=== PATIENT | female | born 1980 | race Caucasian/White ===

== ENCOUNTER 2016-03-13 | Emergency (ER) | payer OTHER | END 2016-03-13 20:34 | disposition home or self-care (01) ==

== ENCOUNTER 2017-04-09 23:15 | Emergency (ER) | payer OTHER ==
[2017-04-09 23:22] VITALS: BP 150/77
--- NOTE | 2017-04-09 23:36 | ED Physician Documentation ---
PD HPI OPHTHO - Stated complaint Stated Complaint: R EYE SWELLING - Chief complaint Chief Complaint: Heent - History obtained from History obtained from: Patient - History of Present Illness Timing - onset: How many weeks ago (1) Timing - details: Gradual onset, Still present Location: Right Quality / character: Aching Associated symptoms: Redness, Swelling Contributing factors: Wears glasses Similar symptoms before: No diagnosis Recently seen: Not recently seen - Additional information Additional information: patient is a 30 year old female with a history of type 1 diabetes who is presenting to the emergency department for tenderness and swelling of her upper eyelid. patient states that it has been going on for about the last 1.5 weeks. 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 Review of Systems Constitutional: denies: Fever, Chills Eyes: denies: Decreased vision Ears: reports: Reviewed and negative Nose: reports: Reviewed and negative Throat: reports: Reviewed and negative Cardiac: reports: Reviewed and negative GI: reports: Reviewed and negative : reports: Reviewed and negative Skin: reports: Reviewed and negative Musculoskeletal: reports: Reviewed and negative Neurologic: denies: Headache, Head injury, LOC Immunocompromised: denies: Immunocompromised PD PAST MEDICAL HISTORY - Past Medical History Endocrine/Autoimmune: Type 1 diabetes, HyPOthyroidism - Past Surgical History Past Surgical History: No - Present Medications Home Medications: Ambulatory Orders Medication Instructions Recorded Confirmed Insulin Aspart [Novolog] 60 units IV DAILY 02/12/14 02/12/14 Levothyroxine Sodium 75 mcg PO DAILY 02/12/14 02/12/14 - Allergies Allergies/Adverse Reactions: Allergies Allergy/AdvReac Type Severity Reaction Status Date / Time No Known Drug Allergies Allergy Verified 04/09/17 23:22 - Social History Does the pt smoke?: No Smoking Status: Never smoker Does the pt drink ETOH?: No Does the pt have substance abuse?: No - Immunizations Immunizations are current?: Yes PD ED PE NORMAL - Vitals Vital signs reviewed: Yes - General General: Alert and oriented X 3, No acute distress - HEENT HEENT: Atraumatic, PERRL, Moist mucous membranes - Cardiac Cardiac: RRR - Respiratory Respiratory: No respiratory distress - Abdomen Abdomen: Non distended - Extremities Extremities: No deformity, No edema - Neuro Neuro: Alert and oriented X 3, No motor deficit, Normal speech PD ED PE EXPANDED - Eyes Eyes: Eyelid erythema (stye on right superior eyelid) Results - Vitals Vitals: Vital Signs - 24 hr 04/09/17 23:20 Temperature 36.5 C Heart Rate 83 Respiratory 15 Rate Blood Pressure 150/77 H O2 Saturation 98 Oxygen O2 Source Room air PD MEDICAL DECISION MAKING - ED course Complexity details: reviewed old records, reviewed results, considered differential, d/w patient ED course: Patient was seen and examined at bedside. patient was well appearing and no distress. Patient's symptoms were caused by a stye. patient was instructed to apply warm compresses and follow up with her eye doctor. patient required no further work up and was stable for discharge with outpatient follow up. Departure - Departure Disposition: Home, Self Care Clinical Impression: Sty, external Condition: Good Instructions: ED [place] Follow-Up: Chloe Mon DO [Primary Care Provider] - Tomorrow Comments: You should apply hot compresses to your eyelid at least 4 times a day. Since your symptoms have been going on for over a week you should schedule a follow up appointment with your eye doctor to discuss possible incision and currettage. you can take tylenol as needed for pain. you may return to the emergency department at any time for new, worsening or uncontrollable symptoms. Discharge Date/Time: 04/09/17 23:40
== END 2017-04-09 23:40 | disposition home or self-care (01) ==
LOC: ED 23:15
DX: H00.021 Hordeolum internum right upper eyelid (principal); E10.9 Type 1 diabetes mellitus without complications; E03.9 Hypothyroidism, unspecified
CPT/HCPCS: 99282

== ENCOUNTER 2018-12-29 14:28 | Emergency (ER) | payer OTHER ==
[2018-12-29 14:35] VITALS: BP 144/82
[2018-12-29 14:54] LABS: BILIRUBIN,URINE NEGATIVE (NEGATIVE); GLUCOSE, URINE (UA) NEGATIVE (NEGATIVE); KETONES,URINE (UA) TRACE mg/dL (NEGATIVE); LEUKOCYTE ESTERASE, URINE LARGE (NEGATIVE); NITRITE,URINE NEGATIVE (NEGATIVE); OCCULT BLOOD,URINE LARGE (NEGATIVE); PH,URINE 6.5 PH (5.0-7.5); PROTEIN,URINE 100 mg/dL (NEGATIVE); UROBILINOGEN,URINE 0.2 (NORMAL) E.U./dL (NORMAL)
[2018-12-29 14:55] LABS: CLARITY,URINE CLOUDY (CLEAR)
[2018-12-29 14:57] LABS: HCG UR QUAL NEGATIVE
[2018-12-29] MEDS ORDERED: NITROFURANTOIN MACRO 100 MG CAPSULE PO STA (14:57)
[2018-12-29] MEDS ORDERED: PHENAZOPYRIDINE 100 MG TABLET PO STA (14:57)
--- NOTE | 2018-12-29 14:58 | ED Physician Documentation ---
PD HPI FEMALE - Stated complaint Stated Complaint: FEMALE - Chief complaint Chief Complaint: UTI - History obtained from History obtained from: Patient - History of Present Illness Timing - onset: Today Timing - duration: Days (1) Timing - details: Gradual onset Pain level max: 4 Pain level max: 3 Associated symptoms: Urinary frequency, Hematuria. No: Fever Contributing factors: No: Similar symptoms before: Diagnosis (UTI) Recently seen: Not recently seen Review of Systems Constitutional: denies: Fever GI: denies: Vomiting : reports: Dysuria, Frequency, Hesitancy, Hematuria. denies: Now EGA Skin: denies: Rash Musculoskeletal: denies: Neck pain, Back pain Neurologic: denies: Headache PD PAST MEDICAL HISTORY - Past Medical History Endocrine/Autoimmune: Type 1 diabetes, HyPOthyroidism - Past Surgical History Past Surgical History: No - Present Medications Home Medications: Ambulatory Orders Medication Instructions Recorded Confirmed Insulin Aspart [Novolog] 60 units IV DAILY 02/12/14 02/12/14 Levothyroxine Sodium 75 mcg PO DAILY 02/12/14 02/12/14 Nitrofurantoin Monohyd/M-Cryst 100 mg PO BID #10 capsule 12/29/18 [Macrobid 100 mg Capsule] - Allergies Allergies/Adverse Reactions: Allergies Allergy/AdvReac Type Severity Reaction Status Date / Time No Known Drug Allergies Allergy Verified 12/29/18 14:33 - Social History Does the pt smoke?: No Smoking Status: Never smoker Does the pt drink ETOH?: No Does the pt have substance abuse?: No - Immunizations Immunizations are current?: Yes PD ED PE NORMAL - Vitals Vital signs reviewed: Yes - General General: Alert and oriented X 3, No acute distress - HEENT HEENT: Moist mucous membranes - Neck Neck: Supple, no meningeal sign - Respiratory Respiratory: No respiratory distress - Back Back: No CVA TTP - Derm Derm: Warm and dry - Neuro Neuro: Alert and oriented X 3 Results - Vitals Vitals: Vital Signs - 24 hr 12/29/18 14:33 Temperature 36.7 C Heart Rate 85 Respiratory 16 Rate Blood Pressure 144/82 H O2 Saturation 99 Oxygen O2 Source Room air - Labs Labs: Laboratory Tests 12/29/18 14:38 Urine Color YELLOW Urine Clarity CLOUDY Urine pH 6.5 Ur Specific Vina 1.015 Urine Protein 100 H Urine Glucose (UA) NEGATIVE Urine Ketones TRACE Urine Occult Blood LARGE H Urine Nitrite NEGATIVE Urine Bilirubin NEGATIVE Urine Urobilinogen 0.2 (NORMAL) Ur Leukocyte Esterase LARGE H Ur Microscopic Review INDICATED Urine Culture Comments Not Reportable Urine HCG, Qual NEGATIVE PD MEDICAL DECISION MAKING - ED course Complexity details: reviewed results, considered differential, d/w patient ED course: 38-year-old female presents to the emergency department with a UTI. Will place on Macrobid and Pyridium. She is well-appearing, nontoxic. Afebrile. No evidence of pyelonephritis. Patient counseled regarding signs and symptoms for which I believe and urgent re-evaluation would be necessary. Patient with good understanding of and agreement to plan and is comfortable going home at this time This document was made in part using voice recognition software. While efforts are made to proofread this document, sound alike and grammatical errors may occur. Departure - Departure Disposition: 01 Home, Self Care Clinical Impression: UTI (urinary tract infection) Qualifiers: Urinary tract infection type: acute cystitis Hematuria presence: without hematuria Qualified Code(s): N30.00 - Acute cystitis without hematuria Condition: Good Instructions: ED UTI Cystitis Female Follow-Up: Elenita Hernandez MD [Primary Care Provider] - As Needed Prescriptions: Nitrofurantoin Monohyd/M-Cryst [Macrobid 100 mg Capsule] 100 mg PO BID #10 capsule Comments: Take all antibiotics until gone. Return if you worsen. Follow-up with your doctor as needed for further care.
[2018-12-29 15:05] LABS: BACTERIA,URINE Few /HPF (None Seen); SQUAMOUS EPITHELIAL CELL,UR FEW Squamous (<= Few)
== END 2018-12-29 15:04 | disposition home or self-care (01) ==
LOC: ED 14:28
DX: N30.01 Acute cystitis with hematuria (principal); E10.9 Type 1 diabetes mellitus without complications
CPT/HCPCS: 81001; 81025; 87086; 99283; 99284; A9270; 81003

== ENCOUNTER 2020-10-09 07:00 | Outpatient (CLI) | payer BC, OTHER | END 2020-10-09 23:59 | disposition home or self-care (01) | LOC: LAB.R 07:00 | PROVIDERS: ATTEND Physician Assistant Medical | DX: N39.0 Urinary tract infection, site not specified (principal) | CPT/HCPCS: 87086 ==

== ENCOUNTER 2020-11-29 07:57 | Outpatient (CLI) | payer BC, OTHER ==
[2020-12-08 14:01] LABS: PROTEIN C ACTIVITY 90 % normal (70-180)
== END 2020-11-29 07:58 | disposition home or self-care (01) ==
LOC: LAB.S 07:57
PROVIDERS: ATTEND Family Medicine
DX: Z01.812 Encounter for preprocedural laboratory examination (principal); Z82.3 Family history of stroke
CPT/HCPCS: 36415; 81241; 81599; 85303; 85306; 86769

== ENCOUNTER 2020-12-13 08:00 | Outpatient (CLI) | payer BC, OTHER ==
[2020-12-13 14:58] LABS: BASOPHILS % (AUTO) 0.8 %; EOSINOPHILS % (AUTO) 0.3 %; HCT - HEMATOCRIT 43.8 % (37.0-47.0); HGB - HEMOGLOBIN 13.5 g/dL (12.0-16.0); LYMPHOCYTES # (AUTO) 0.9 10^3/uL (1.5-3.5); LYMPHOCYTES % (AUTO) 24.5 %; MEAN CORPUSCULAR HEMOGLOBIN 27.3 pg (27.0-31.0); MEAN CORPUSCULAR HGB CONC 30.8 g/dL (32.0-36.0); MEAN CORPUSCULAR VOLUME 88.7 fL (81.0-99.0); MEAN PLATELET VOLUME 10.7 fL (7.9-10.8); MONOCYTES # (AUTO) 0.5 10^3/uL (0.0-1.0); MONOCYTES % (AUTO) 14.1 %; NEUTROPHILS # (AUTO) 2.3 10^3/uL (1.5-6.6); PLT - PLATELET COUNT 180 10^3/uL (130-450); RED BLOOD COUNT 4.94 10^6/uL (4.20-5.40); RED CELL DISTRIBUTION WIDTH 13.7 % (12.0-15.0); WHITE BLOOD COUNT 3.8 x10^3/uL (4.8-10.8)
[2020-12-13 15:50] LABS: CALCIUM 8.9 mg/dL (8.5-10.3); CREATININE 0.7 mg/dL (0.4-1.0); POTASSIUM 4.3 mmol/L (3.5-5.0)
== END 2020-12-13 23:59 | disposition home or self-care (01) ==
LOC: LAB.S 08:00
PROVIDERS: ATTEND Emergency Medicine
DX: U07.1 COVID-19 (principal); E10.9 Type 1 diabetes mellitus without complications; M79.10 Myalgia, unspecified site
CPT/HCPCS: 36415; 80048; 85025; 85379; 86140

== ENCOUNTER 2020-12-14 17:59 | Emergency (ER) | payer BC, OTHER ==
--- NOTE | 2020-12-14 18:10 | ED Physician Documentation ---
History of Present Illness - Stated complaint Stated Complaint: C+ ANTIBODY INFUSION - History obtained from History obtained from: Patient - Additonal information Additional information: 40-year-old woman seen earlier in the day by me for her symptoms after Covid vaccine. She had a Covid test already pending from the urgent care and after discharge. This came back positive. She denies shortness of breath. She does fit criteria for Mab therapy and was referred back for that. This is because of BMI and underlying diabetes. She denies shortness of breath. Review of Systems Constitutional: reports: Chills, Myalgias Nose: reports: Rhinorrhea / runny nose Respiratory: denies: Dyspnea PD PAST MEDICAL HISTORY - Past Medical History Endocrine/Autoimmune: Type 1 diabetes, HyPOthyroidism - Past Surgical History Past Surgical History: No - Present Medications Home Medications: Ambulatory Orders Medication Instructions Recorded Confirmed Insulin Aspart [Novolog] 60 units IV DAILY 02/12/14 02/12/14 Levothyroxine Sodium 75 mcg PO DAILY 02/12/14 02/12/14 Nitrofurantoin Monohyd/M-Cryst 100 mg PO BID #10 capsule 12/29/18 [Macrobid 100 mg Capsule] - Allergies Allergies/Adverse Reactions: Allergies Allergy/AdvReac Type Severity Reaction Status Date / Time codeine Allergy Nausea Verified 12/14/20 18:26 - Social History Does the pt smoke?: No Smoking Status: Never smoker Does the pt drink ETOH?: No Does the pt have substance abuse?: No - Immunizations Immunizations are current?: Yes PD ED PE NORMAL - Vitals Vital signs reviewed: Yes - General General: Alert and oriented X 3, No acute distress, Well developed/nourished - Neck Neck: Supple, no meningeal sign, No bony TTP - Back Back: No CVA TTP, No spinal TTP - Derm Derm: Normal color, Warm and dry - Neuro Neuro: Alert and oriented X 3, Normal speech Results - Vitals Vitals: Vital Signs - 24 hr 12/14/20 18:26 Temperature 37.3 C Heart Rate 76 Respiratory 16 Rate Blood Pressure 146/64 H O2 Saturation 100 Oxygen O2 Source Room air PD MEDICAL DECISION MAKING - ED course ED course: Mab therapy for this patient with Covid was considered and discussed with the patient. The patient was provided the handout: ``Casirivimab plus Imdevimab Fact Sheet for Patients, Parents and Caregivers, and the information within was discussed with the patient. The patient was informed of alternatives prior to receiving Mab therapy. The patient was informed that these medications are unapproved drugs that are authorized for use under Emergency Use Authorization by the FDA. The patient will be monitored for at least 1 hour after infusion is complete. Departure - Departure Clinical Impression: COVID-19 Condition: Good Record reviewed to determine appropriate education?: Yes Instructions: ED Viral Syndrome Comments: Now that we know you have Covid, you do need to quarantine. I presume our employee health department will reach out to you regarding this. Return for new or worsening symptoms.
[2020-12-14] MEDS ORDERED: CASIRIVIMAB/IMDEVIMAB 10 ML in SODIUM CHLORIDE 0.9% 50 ML IV ONE (19:00)
[2020-12-14 20:16] VITALS: BP 138/78
== END 2020-12-14 20:21 | disposition home or self-care (01) ==
LOC: ED 17:59
DX: U07.1 COVID-19 (principal); E10.9 Type 1 diabetes mellitus without complications; Z68.42 Body mass index [BMI] 45.0-49.9, adult; R07.89 Other chest pain; R79.89 Other specified abnormal findings of blood chemistry
CPT/HCPCS: 71275; 93005; 99283; 99284; M0243; Q0244; Q9967

== ENCOUNTER 2022-09-22 08:00 | Outpatient (CLI) | payer BC, OTHER ==
--- NOTE | 2022-09-22 13:01 | XRAY Report ---
PROCEDURE: Ankle 3 View RT INDICATIONS: SPRAIN OF RIGHT ANKLE TECHNIQUE: 3 views of the ankle were acquired. COMPARISON: None. FINDINGS: Bones: Multiple corticated ossifications inferior to the lateral malleolus is consistent with remote trauma. 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 No acute fractures or dislocations. Ankle mortise is normally aligned. No suspicious bony lesions. Soft tissues: No tibiotalar joint effusion. Achilles tendon appears normal. Lateral soft tissue swe lling. Small vessel calcifications typically indicate long-standing diabetes. IMPRESSION: No acute bony abnormality. Posttraumatic degenerative arthritis. Lateral ankle sprain. Reviewed by: Zach Avlia MD on 09/22/2022 1:00 PM PDT Approved by: Zach Avila MD on 09/22/2022 1:00 PM PDT Station ID: [id number]
== END 2022-09-22 23:59 | disposition home or self-care (01) ==
LOC: DI.S 08:00
PROVIDERS: ATTEND Physician Assistant Medical
DX: S93.401A Sprain of unspecified ligament of right ankle, initial encounter (principal); M19.171 Post-traumatic osteoarthritis, right ankle and foot

== ENCOUNTER 2023-05-13 08:00 | Outpatient (CLI) | payer BC, OTHER | END 2023-05-13 23:59 | disposition home or self-care (01) | LOC: LAB.S 08:00 | PROVIDERS: ATTEND Nurse Practitioner | DX: N39.0 Urinary tract infection, site not specified (principal) | CPT/HCPCS: 87086 ==

== ENCOUNTER 2023-08-19 08:51 | Outpatient (CLI) | payer BC, OTHER ==
[2023-08-19 15:08] LABS: BASOPHILS # (AUTO) 0.1 10^3/uL (0.0-0.1); BASOPHILS % (AUTO) 0.9 %; EOSINOPHILS # (AUTO) 0.1 10^3/uL (0.0-0.7); EOSINOPHILS % (AUTO) 0.6 %; HCT - HEMATOCRIT 41.8 % (37.0-47.0); HGB - HEMOGLOBIN 13.3 g/dL (12.0-16.0); LYMPHOCYTES # (AUTO) 1.6 10^3/uL (1.5-3.5); LYMPHOCYTES % (AUTO) 19.9 %; MEAN CORPUSCULAR HEMOGLOBIN 28.3 pg (27.0-31.0); MEAN CORPUSCULAR HGB CONC 31.8 g/dL (32.0-36.0); MEAN CORPUSCULAR VOLUME 88.9 fL (81.0-99.0); MEAN PLATELET VOLUME 10.8 fL (7.9-10.8); MONOCYTES # (AUTO) 0.5 10^3/uL (0.0-1.0); MONOCYTES % (AUTO) 6.3 %; NEUTROPHILS # (AUTO) 5.7 10^3/uL (1.5-6.6); PLT - PLATELET COUNT 270 10^3/uL (130-450); RED CELL DISTRIBUTION WIDTH 13.1 % (12.0-15.0)
[2023-08-19 15:30] LABS: ALBUMIN 4.1 g/dL (3.2-5.5); ALBUMIN/GLOBULIN RATIO 1.2 (1.0-2.2); BILIRUBIN,TOTAL 0.4 mg/dL (0.2-1.0); CALCIUM 9.4 mg/dL (8.5-10.3); CREATININE 0.7 mg/dL (0.6-1.3); CRP - C-REACTIVE PROTEIN 0.7 mg/dL (<0.5); POTASSIUM 4.1 mmol/L (3.5-4.5); TOTAL PROTEIN 7.4 g/dL (6.4-8.9)
[2023-08-19 15:36] LABS: THYROID STIMULATING HORMONE 4.56 uIU/mL (0.34-5.60)
[2023-08-19 15:43] LABS: FERRITIN 80.3 ng/mL (11.0-306.8)
[2023-08-19 15:45] LABS: PROLACTIN 9.82 ng/mL
[2023-08-19 21:18] LABS: ESTIMATED AVERAGE GLUCOSE 180 mg/dL (70-100); HEMOGLOBIN A1c% 7.9 % (4.27-6.07)
[2023-08-20 08:11] LABS: PROGESTERONE 0.3 ng/mL (.); VITAMIN D 25-HYDROXY 25.5 ng/mL (30.0-100.0)
[2023-08-20 19:07] LABS: THYROGLOBULIN ANTIBODY <1.0 IU/mL (0.0-0.9); THYROID PEROXIDASE (TPO) AB 33 IU/mL (0-34)
== END 2023-08-19 08:52 | disposition home or self-care (01) ==
LOC: LAB.S 08:51
PROVIDERS: ATTEND Registered Nurse
DX: H53.9 Unspecified visual disturbance (principal); R51.9 Headache, unspecified; R53.83 Other fatigue; R42 Dizziness and giddiness
CPT/HCPCS: 36415; 80053; 82150; 82306; 82607; 82670; 82728; 83036; 83690; 84144; 84146; 84439; 84443; 84481; 85025; 86140; 86376; 86800

== ENCOUNTER 2023-11-02 08:00 | Outpatient (CLI) | payer BC, OTHER | END 2023-11-02 23:59 | disposition home or self-care (01) | LOC: LAB.N 08:00 | PROVIDERS: ATTEND Registered Nurse | DX: R30.0 Dysuria (principal) | CPT/HCPCS: 87086; 87181 ==